=== PATIENT | female | born 1975 | race Caucasian/White ===

== ENCOUNTER 2016-10-02 13:27 | Emergency (ER) | payer OTHER ==
[~2016-10-02 13:27] MED LIST: /DULO30CA; ACET30TAB PO; AMBI10TA PO; AMBI5TAB; AMBIEN PO; ASCO25TA PO; ATIV1TAB2; BACT800T5 PO; BUSP10TA PO; BUSP1TAB PO; CELE100C; CYCL10TA PO; CYCL10TA3 PO; CYMB60CA3 PO; DOXY100T; DULO1CAP3 PO; ESTR625TA PO; Flagyl; GABA-279 PO; GABA300C2 PO; GABA600T PO; HALO1TA PO; HYDR10EL PO; IMIT50TA PO; LAMI25TA PO; LEXA1TAB PO; LITHOBID PO; METH-107 PO; NEUR600T PO; No home medications; OMEP20CA3 PO; OXYC1TAB23 PO; PANTOPRAZOLE PO; PREG100CA; PREG50CA PO; PRIL20CA9 PO; PROZ20CA; PROZ40CA PO; PROZAC PO; REME15TA PO; ROBA750T4 PO; SUMA50TA2 PO; TIZA4CAP3 PO; TOPA50TA7 PO; TRAZ100T2 PO; TRAZ100T4 PO; TRAZ150T14 PO; TRAZ50TA2 PO; TRAZ50TA4 PO; ULTR50TA PO; VIST50CA PO; XANAX PO; ambien
--- NOTE | 2016-10-02 14:22 | REP ---
Clinical: Trauma. Technique: AP, lateral, bilateral oblique views left hand. Findings: The osseous structures and joint spaces are intact and there is no evidence for acute fracture or dislocation. Age-related degenerative changes appreciated. Surrounding soft tissues are unremarkable. No subcutaneous emphysema or radiodense foreign body. Impression: No acute fracture or dislocation. Signed by Rohan Michael MD 10/02/2016 02:13 P
[2016-10-02] MEDS ORDERED: ACETAMINOPHEN 325 MG TAB As Ordered ONE (14:51)
--- NOTE | 2016-10-02 15:01 | EDDOCDS ---
Nurse's Notes [facility] Name: Millie Burks Age: 41 yrs Sex: Female : 1975 Arrival Date: 10/02/2016 Time: 13:27 Bed PR Private MD: Brandy Maria Diagnosis: Contusion of left hand Presentation: 10/02 13:28 Presenting complaint: Patient states: was upset and hit a curtain jeyson 30 mins ago and hs1 hurt left hand. Patient states left thumb hurts, bruising noted. Adult Sepsis Screening: The patient does not have new or worsening altered mentation. Patient's respiratory rate is less than 22. Systolic blood pressure is greater than 100. Patient has a qSOFA score of 0- Negative Sepsis Screen. Suicide/Homicide risk assessment- the patient denies having any suicidal and/or homicidal ideations and does not present with any other emotional, behavioral or mental health complaints. Status: Patient is not a statistical machine servicer or dependent. Transition of care: patient was not received from another setting of care. 13:28 Method Of Arrival: Walkin/Carried/Asstd hs1 13:28 Acuity: WARNER Level 4 dwg Triage Assessment: 13:33 General: Appears in no apparent distress, Behavior is anxious, cooperative. Pain: hs1 Location: palmar aspect of proximal phalanx of left thumb Pain currently is 8 out of 10 on a pain scale. HIV screening NA for this visit Offered previously. Derm: Swollen area noted on palmar aspect of proximal phalanx of left thumb. Musculoskeletal: Range of motion intact in MCP of left thumb. Historical: - Allergies: Aspirin (Hives); Toradol (Hives); Zofran; NSAIDS (Upset stomach, Hives); - Home Meds: 1. gabapentin 300 mg Oral cap 1 cap 3 times per day (Last dose: 10/02/2016 12:00) 2. Remeron 30 mg oral tab 1 tab once daily (Last dose: 10/01/2016) 3. Topamax 50 mg Oral tab daily 4. omeprazole 20 mg Oral cpDR 1 cap once daily 5. Imitrex 25 mg Oral tab 1 tab as needed - PMHx: Anxiety; Bipolar disorder; Depression; Fibromyalgia; GERD; Migraines; PTSD; - PSHx: Ankle Arthroplasty, Right; ; cyst removal from breast; Hysterectomy; - Social history: Smoking status: Patient uses tobacco products, heavy tobacco smoker. No barriers to communication noted, The patient speaks fluent Slovak, Speaks appropriately for age. - Family history: Not pertinent. - : The pt / caregiver states he / she is not on anticoagulants. Home medication list is obtained from the patient. - Exposure Risk Screening:: None identified. Screenin:58 Screening information is obtained from the patient. Fall risk: No risks identified. ms18 Assistance ADL's: requires no assistance with activities of daily living. Abuse/DV Screen: The patient / caregiver reports he/she is: not in a situation that causes fear, pain or injury. Nutritional screening: No deficits noted. Advance Directives: There is no living will. home support is adequate. Assessment: 14:58 General: Appears in no apparent distress, comfortable, Behavior is appropriate for age, ms18 cooperative, pleasant. Pain: Location: left hand Pain currently is 5 out of 10 on a pain scale. Neurological: No deficits noted. Respiratory: Airway is patent Respiratory effort is even, unlabored. Derm: Skin is pink, warm & dry. normal. Musculoskeletal: Circulation, motion, and sensation intact Range of motion intact in all extremities. No deformity noted. Vital Signs: 13:28 BP 123 / 72; Pulse 83; Resp 18; Temp 98.3(O); Pulse Ox 100% on R/A; Weight 58.97 kg ct3 (R); Height 5 ft. 3 in. (160.02 cm) (R); Pain 8/10; 14:38 BP 112 / 70 RA Sitting (auto/lg); Pulse 79; Resp 18; Temp 99.2(T); Pulse Ox 99% on R/A; rs6 Pain 8/10; 14:58 BP 120 / 72; Pulse 78; Resp 18; Temp 98.7; Pulse Ox 98% ; Pain 5/10; ms18 13:28 Body Mass Index 23.03 (58.97 kg, 160.02 cm) ct3 Vitals: 13:28 Log In Time: October 02, 2016 at 13:25. ct3 ED Course: 13:28 Patient visited by Fifi Victoria PCA. ct3 13:28 Brandy Maria is Private Physician. ct3 13:28 Patient moved to Waiting ct3 13:29 Patient moved to Pre RCE ct3 13:30 Triage Initiated hs1 13:51 Patient moved to Triage 3 dwg 13:52 Jeff Kaur FNP is [facility]. ke 13:52 Patient visited by Jeff Kaur FNP. ke 13:52 Patient visited by Jeff Kaur FNP. ke 13:58 Patient moved to TR1 hs1 14:26 Patient visited by Jeff Kaur FNP. ke 14:34 Brandy Maria is Referral Physician. ke 14:34 Patient moved to PR2 / rs6 14:39 Patient visited by Fay Hook PCA. rs6 14:58 Patient visited by Estephanie Burks RN. ms18 14:58 The patient / caregiver is instructed regarding the plan of care and ED course. ms18 Accompanied by Friend, Patient has correct armband on for positive identification. Property sent home with patient. :Personal belongings accompany Pt. 14:58 No IV's were initiated during this patient's visit. No procedures done that require ms18 assistance. Administered Medications: 14:55 Drug: Acetaminophen 650 mg [acetaminophen 325 mg tablet (2 tabs)] Route: PO; ms18 Order Results: There are currently no results for this order. Outcome: 14:34 Discharge ordered by Provider. ke 14:58 Discharge Assessment: Patient awake, alert and oriented x 3. No cognitive and/or ms18 functional deficits noted. Patient verbalized understanding of disposition instructions. patient administered narcotics - no. The following High Risk Discharge criteria are identified: None. Discharged to home ambulatory, with friend. Condition: good Condition: stable Condition: improved. Discharge instructions given to patient, Instructed on discharge instructions, follow up and referral plans. Demonstrated understanding of instructions, Pt was receptive of discharge instructions/ teaching. No special radiology studies were completed. 15:00 Patient left the ED. ms18 Signatures: Ej Granado RN RN [facility] Jeff Kaur FNP FNP ke Sherrill, Hannah, RN RN hs1 Fifi Victoria, PAINTER CHASSIS PAINTER CHASSIS ct3 Estephanie Burks RN RN ms18 Fay Hook, PAINTER CHASSIS PAINTER CHASSIS rs6 Corrections: (The following items were deleted from the chart) 13:51 13:28 Acuity: WARNER Level 5 hs1 dw MTDD
--- NOTE | 2016-10-02 15:01 | EDDOCDS ---
Physician Documentation [facility] Name: Millie Burks Age: 41 yrs Sex: Female : 1975 Arrival Date: 10/02/2016 Time: 13:27 Bed PR Private MD: Brandy Maria Disposition: 10/02/16 14:34 Discharged to Home/Self Care. Impression: Contusion of left hand. - Condition is Stable. - Discharge Instructions: Elastic Bandage and RICE, Hand Contusion. - Medication Reconciliation, Local Pharmacy Hours form. - Follow up: Brandy Maria; When: As needed; Reason: Continuance of care. - Problem is new. - Symptoms are unchanged. Historical: - Allergies: Aspirin (Hives); Toradol (Hives); Zofran; NSAIDS (Upset stomach, Hives); - Home Meds: 1. gabapentin 300 mg Oral cap 1 cap 3 times per day (Last dose: 10/02/2016 12:00) 2. Remeron 30 mg oral tab 1 tab once daily (Last dose: 10/01/2016) 3. Topamax 50 mg Oral tab daily 4. omeprazole 20 mg Oral cpDR 1 cap once daily 5. Imitrex 25 mg Oral tab 1 tab as needed - PMHx: Anxiety; Bipolar disorder; Depression; Fibromyalgia; GERD; Migraines; PTSD; - PSHx: Ankle Arthroplasty, Right; ; cyst removal from breast; Hysterectomy; - Social history: Smoking status: Patient uses tobacco products, heavy tobacco smoker. No barriers to communication noted, The patient speaks fluent Ukrainian, Speaks appropriately for age. - Family history: Not pertinent. - : The pt / caregiver states he / she is not on anticoagulants. Home medication list is obtained from the patient. - Exposure Risk Screening:: None identified. Vital Signs: 10/02 13:28 BP 123 / 72; Pulse 83; Resp 18; Temp 98.3(O); Pulse Ox 100% on R/A; Weight 58.97 kg / ct3 130.01 lbs (R); Height 5 ft. 3 in. (160.02 cm) (R); Pain 8/10; 14:38 BP 112 / 70 RA Sitting (auto/lg); Pulse 79; Resp 18; Temp 99.2(T); Pulse Ox 99% on R/A; rs6 Pain 8/10; 14:58 BP 120 / 72; Pulse 78; Resp 18; Temp 98.7; Pulse Ox 98% ; Pain 5/10; ms18 13:28 Body Mass Index 23.03 (58.97 kg, 160.02 cm) ct3 MDM: 13:58 Hand, Complete Ordered. EDMS 14:33 Jordy Wrap ordered. ke 14:33 Acetaminophen Tablet 650 mg PO once ordered. ke 14:47 Financial registration complete. pm4 Administered Medications: 14:55 Drug: Acetaminophen 650 mg [acetaminophen 325 mg tablet (2 tabs)] Route: PO; ms18 Signatures: Dispatcher [employer] EDMS Jeff Kaur, RECYCLING WORKER RECYCLING WORKER Yolande Marquez RN RN hs1 Estephanie Burks RN RN ms18 Roger Dick, Reg Reg pm4 MTDD
--- NOTE | 2016-10-04 16:02 | EDDOCDS ---
Physician Documentation [facility] Name: Millie Burks Age: 41 yrs Sex: Female : 1975 Arrival Date: 10/02/2016 Time: 13:27 Bed PR Private MD: Brandy Maria Disposition: 10/02/16 14:34 Discharged to Home/Self Care. Impression: Contusion of left hand. - Condition is Stable. - Discharge Instructions: Elastic Bandage and RICE, Hand Contusion. - Medication Reconciliation, Local Pharmacy Hours form. - Follow up: Brandy Maria; When: As needed; Reason: Continuance of care. - Problem is new. - Symptoms are unchanged. Historical: - Allergies: Aspirin (Hives); Toradol (Hives); Zofran; NSAIDS (Upset stomach, Hives); - Home Meds: 1. gabapentin 300 mg Oral cap 1 cap 3 times per day (Last dose: 10/02/2016 12:00) 2. Remeron 30 mg oral tab 1 tab once daily (Last dose: 10/01/2016) 3. Topamax 50 mg Oral tab daily 4. omeprazole 20 mg Oral cpDR 1 cap once daily 5. Imitrex 25 mg Oral tab 1 tab as needed - PMHx: Anxiety; Bipolar disorder; Depression; Fibromyalgia; GERD; Migraines; PTSD; - PSHx: Ankle Arthroplasty, Right; ; cyst removal from breast; Hysterectomy; - Social history: Smoking status: Patient uses tobacco products, heavy tobacco smoker. No barriers to communication noted, The patient speaks fluent Nepali, Speaks appropriately for age. - Family history: Not pertinent. - : The pt / caregiver states he / she is not on anticoagulants. Home medication list is obtained from the patient. - Exposure Risk Screening:: None identified. Vital Signs: 10/02 13:28 BP 123 / 72; Pulse 83; Resp 18; Temp 98.3(O); Pulse Ox 100% on R/A; Weight 58.97 kg / ct3 130.01 lbs (R); Height 5 ft. 3 in. (160.02 cm) (R); Pain 8/10; 14:38 BP 112 / 70 RA Sitting (auto/lg); Pulse 79; Resp 18; Temp 99.2(T); Pulse Ox 99% on R/A; rs6 Pain 8/10; 14:58 BP 120 / 72; Pulse 78; Resp 18; Temp 98.7; Pulse Ox 98% ; Pain 5/10; ms18 13:28 Body Mass Index 23.03 (58.97 kg, 160.02 cm) ct3 MDM: 13:58 Hand, Complete Ordered. EDMS 14:33 Jordy Wrap ordered. ke 14:33 Acetaminophen Tablet 650 mg PO once ordered. ke 14:47 Financial registration complete. pm4 15:05 [facility] Payment Agreement was scanned into [employer] and attached to record. pm4 15: [facility] Payment Agreement was scanned into [employer] and attached to record. pm4 10/03 11:59 T-Sheet-- Draft Copy was scanned into [email or web address] and attached to record. gb Administered Medications: 10/02 14:55 Drug: Acetaminophen 650 mg [acetaminophen 325 mg tablet (2 tabs)] Route: PO; ms18 Signatures: Dispatcher [employer] EDMS Lia Aguilar, Reg Reg gb Jeff Kaur, POTATO CHIP FRIER POTATO CHIP FRIER Yolande Marquez, RN RN hs1 Estephanie Burks RN RN ms18 Roger Dick, Reg Reg pm4 The chart was reviewed and I authenticate all verbal orders and agree with the evaluation and treatment provided.Attachments: 15: [facility] Payment Agreement pm4 10/03 11:59 T-Sheet-- Draft Copy gb Chart Complete MTDD
--- NOTE | 2016-10-04 16:02 | EDDOCDS ---
Physician Documentation [facility] Name: Millie Burks Age: 41 yrs Sex: Female : 1975 Arrival Date: 10/02/2016 Time: 13:27 Bed PR Private MD: Brandy Maria Disposition: 10/02/16 14:34 Discharged to Home/Self Care. Impression: Contusion of left hand. - Condition is Stable. - Discharge Instructions: Elastic Bandage and RICE, Hand Contusion. - Medication Reconciliation, Local Pharmacy Hours form. - Follow up: Brandy Maria; When: As needed; Reason: Continuance of care. - Problem is new. - Symptoms are unchanged. Historical: - Allergies: Aspirin (Hives); Toradol (Hives); Zofran; NSAIDS (Upset stomach, Hives); - Home Meds: 1. gabapentin 300 mg Oral cap 1 cap 3 times per day (Last dose: 10/02/2016 12:00) 2. Remeron 30 mg oral tab 1 tab once daily (Last dose: 10/01/2016) 3. Topamax 50 mg Oral tab daily 4. omeprazole 20 mg Oral cpDR 1 cap once daily 5. Imitrex 25 mg Oral tab 1 tab as needed - PMHx: Anxiety; Bipolar disorder; Depression; Fibromyalgia; GERD; Migraines; PTSD; - PSHx: Ankle Arthroplasty, Right; ; cyst removal from breast; Hysterectomy; - Social history: Smoking status: Patient uses tobacco products, heavy tobacco smoker. No barriers to communication noted, The patient speaks fluent Greenlandic, Speaks appropriately for age. - Family history: Not pertinent. - : The pt / caregiver states he / she is not on anticoagulants. Home medication list is obtained from the patient. - Exposure Risk Screening:: None identified. Vital Signs: 10/02 13:28 BP 123 / 72; Pulse 83; Resp 18; Temp 98.3(O); Pulse Ox 100% on R/A; Weight 58.97 kg / ct3 130.01 lbs (R); Height 5 ft. 3 in. (160.02 cm) (R); Pain 8/10; 14:38 BP 112 / 70 RA Sitting (auto/lg); Pulse 79; Resp 18; Temp 99.2(T); Pulse Ox 99% on R/A; rs6 Pain 8/10; 14:58 BP 120 / 72; Pulse 78; Resp 18; Temp 98.7; Pulse Ox 98% ; Pain 5/10; ms18 13:28 Body Mass Index 23.03 (58.97 kg, 160.02 cm) ct3 MDM: 13:58 Hand, Complete Ordered. EDMS 14:33 Jordy Wrap ordered. ke 14:33 Acetaminophen Tablet 650 mg PO once ordered. ke 14:47 Financial registration complete. pm4 15:05 [facility] Payment Agreement was scanned into [employer] and attached to record. pm4 15: [facility] Payment Agreement was scanned into [employer] and attached to record. pm4 10/03 11:59 T-Sheet-- Draft Copy was scanned into [employer] and attached to record. gb Administered Medications: 10/02 14:55 Drug: Acetaminophen 650 mg [acetaminophen 325 mg tablet (2 tabs)] Route: PO; ms18 Signatures: Dispatcher [employer] EDMS Lia Aguilar, Reg Reg gb Jeff Kaur, MOTORIZED SQUAD CAPTAIN MOTORIZED SQUAD CAPTAIN Yolande Marquez, RN RN hs1 Estephanie Burks RN RN ms18 Roger Dick, Reg Reg pm4 The chart was reviewed and I authenticate all verbal orders and agree with the evaluation and treatment provided.Attachments: 15: [facility] Payment Agreement pm4 10/03 11:59 T-Sheet-- Draft Copy gb Chart Complete MTDD
--- NOTE | 2016-10-04 16:02 | EDDOCDS ---
Nurse's Notes [facility] Name: Millie Burks Age: 41 yrs Sex: Female : 1975 Arrival Date: 10/02/2016 Time: 13:27 Bed PR Private MD: Brandy Maria Diagnosis: Contusion of left hand Presentation: 10/02 13:28 Presenting complaint: Patient states: was upset and hit a curtain jeyson 30 mins ago and hs1 hurt left hand. Patient states left thumb hurts, bruising noted. Adult Sepsis Screening: The patient does not have new or worsening altered mentation. Patient's respiratory rate is less than 22. Systolic blood pressure is greater than 100. Patient has a qSOFA score of 0- Negative Sepsis Screen. Suicide/Homicide risk assessment- the patient denies having any suicidal and/or homicidal ideations and does not present with any other emotional, behavioral or mental health complaints. Status: Patient is not a resident services coordinator or dependent. Transition of care: patient was not received from another setting of care. 13:28 Method Of Arrival: Walkin/Carried/Asstd hs1 13:28 Acuity: WARNER Level 4 dwg Triage Assessment: 13:33 General: Appears in no apparent distress, Behavior is anxious, cooperative. Pain: hs1 Location: palmar aspect of proximal phalanx of left thumb Pain currently is 8 out of 10 on a pain scale. HIV screening NA for this visit Offered previously. Derm: Swollen area noted on palmar aspect of proximal phalanx of left thumb. Musculoskeletal: Range of motion intact in MCP of left thumb. Historical: - Allergies: Aspirin (Hives); Toradol (Hives); Zofran; NSAIDS (Upset stomach, Hives); - Home Meds: 1. gabapentin 300 mg Oral cap 1 cap 3 times per day (Last dose: 10/02/2016 12:00) 2. Remeron 30 mg oral tab 1 tab once daily (Last dose: 10/01/2016) 3. Topamax 50 mg Oral tab daily 4. omeprazole 20 mg Oral cpDR 1 cap once daily 5. Imitrex 25 mg Oral tab 1 tab as needed - PMHx: Anxiety; Bipolar disorder; Depression; Fibromyalgia; GERD; Migraines; PTSD; - PSHx: Ankle Arthroplasty, Right; ; cyst removal from breast; Hysterectomy; - Social history: Smoking status: Patient uses tobacco products, heavy tobacco smoker. No barriers to communication noted, The patient speaks fluent Portuguese, Speaks appropriately for age. - Family history: Not pertinent. - : The pt / caregiver states he / she is not on anticoagulants. Home medication list is obtained from the patient. - Exposure Risk Screening:: None identified. Screenin:58 Screening information is obtained from the patient. Fall risk: No risks identified. ms18 Assistance ADL's: requires no assistance with activities of daily living. Abuse/DV Screen: The patient / caregiver reports he/she is: not in a situation that causes fear, pain or injury. Nutritional screening: No deficits noted. Advance Directives: There is no living will. home support is adequate. Assessment: 14:58 General: Appears in no apparent distress, comfortable, Behavior is appropriate for age, ms18 cooperative, pleasant. Pain: Location: left hand Pain currently is 5 out of 10 on a pain scale. Neurological: No deficits noted. Respiratory: Airway is patent Respiratory effort is even, unlabored. Derm: Skin is pink, warm & dry. normal. Musculoskeletal: Circulation, motion, and sensation intact Range of motion intact in all extremities. No deformity noted. Vital Signs: 13:28 BP 123 / 72; Pulse 83; Resp 18; Temp 98.3(O); Pulse Ox 100% on R/A; Weight 58.97 kg ct3 (R); Height 5 ft. 3 in. (160.02 cm) (R); Pain 8/10; 14:38 BP 112 / 70 RA Sitting (auto/lg); Pulse 79; Resp 18; Temp 99.2(T); Pulse Ox 99% on R/A; rs6 Pain 8/10; 14:58 BP 120 / 72; Pulse 78; Resp 18; Temp 98.7; Pulse Ox 98% ; Pain 5/10; ms18 13:28 Body Mass Index 23.03 (58.97 kg, 160.02 cm) ct3 Vitals: 13:28 Log In Time: October 02, 2016 at 13:25. ct3 ED Course: 13:28 Patient visited by Fifi Victoria PCA. ct3 13:28 Brandy Maria is Private Physician. ct3 13:28 Patient moved to Waiting ct3 13:29 Patient moved to Pre RCE ct3 13:30 Triage Initiated hs1 13:51 Patient moved to Triage 3 dwg 13:52 [facility]. ke 13:52 Patient visited by Jeff Kaur FNP. ke 13:52 Patient visited by Jeff Kaur FNP. ke 13:58 Patient moved to TR1 hs1 14:26 Patient visited by Jeff Kaur FNP. ke 14:34 Brandy Maria is Referral Physician. ke 14:34 Patient moved to PR2 / rs6 14:39 Patient visited by Fay Hook, EZEQUIEL. rs6 14:58 Patient visited by Estephanie Burks RN. ms18 14:58 The patient / caregiver is instructed regarding the plan of care and ED course. ms18 Accompanied by Friend, Patient has correct armband on for positive identification. Property sent home with patient. :Personal belongings accompany Pt. 14:58 No IV's were initiated during this patient's visit. No procedures done that require ms18 assistance. 15:05 [facility] Payment Agreement was scanned into [employer] and attached to record. pm4 15:06 [facility] Payment Agreement was scanned into [employer] and attached to record. pm4 15:12 Hand, Complete Returned. EDMS 10/03 11:59 T-Sheet-- Draft Copy was scanned into [employer] and attached to record. gb Administered Medications: 10/02 14:55 Drug: Acetaminophen 650 mg [acetaminophen 325 mg tablet (2 tabs)] Route: PO; ms18 Order Results: Radiology Order: Hand, Complete Test: Hand, Complete REASON FOR EXAMINATION: Trauma; Clinical: Trauma.; ; Technique: AP, lateral, bilateral oblique views left hand.; ; Findings: The osseous structures and joint spaces are intact and there is no; evidence for acute fracture or dislocation. Age-related degenerative changes; appreciated. Surrounding soft tissues are unremarkable. No subcutaneous; emphysema or radiodense foreign body.; ; Impression:; No acute fracture or dislocation.; ; ; Signed by; Rohan Michael MD 10/02/2016 02:13 P; Outcome: 14:34 Discharge ordered by Provider. ke 14:58 Discharge Assessment: Patient awake, alert and oriented x 3. No cognitive and/or ms18 functional deficits noted. Patient verbalized understanding of disposition instructions. patient administered narcotics - no. The following High Risk Discharge criteria are identified: None. Discharged to home ambulatory, with friend. Condition: good Condition: stable Condition: improved. Discharge instructions given to patient, Instructed on discharge instructions, follow up and referral plans. Demonstrated understanding of instructions, Pt was receptive of discharge instructions/ teaching. No special radiology studies were completed. 15:00 Patient left the ED. ms18 Signatures: Dispatcher [employer] EDMS Ej Granado, RN RN dwg Lia Aguilar, Reg Reg gb Jeff Kaur, SENIOR EXECUTIVE ASSISTANT SENIOR EXECUTIVE ASSISTANT Yolande Marquez RN RN hs1 Fifi Victoria, HEAD BANDER AND LINER OPERATOR HEAD BANDER AND LINER OPERATOR ct3 Estephanie Burks RN RN ms18 Fay Hook, HEAD BANDER AND LINER OPERATOR HEAD BANDER AND LINER OPERATOR rs6 Roger Dick, Reg Reg pm4 Corrections: (The following items were deleted from the chart) 13:51 13:28 Acuity: WARNER Level 5 hs1 cammy Chart Complete MTDD
== END 2016-10-02 15:00 | disposition home or self-care (01) ==
LOC: M ED 13:27
DX: S90.32XA Contusion of left foot, initial encounter (principal); W22.8XXA Striking against or struck by other objects, initial encounter; Y92.89 Other specified places as the place of occurrence of the external cause; Y93.89 Activity, other specified; Y99.8 Other external cause status; F31.9 Bipolar disorder, unspecified; M79.7 Fibromyalgia; K21.9 Gastro-esophageal reflux disease without esophagitis; G43.909 Migraine, unspecified, not intractable, without status migrainosus; F43.10 Post-traumatic stress disorder, unspecified; F17.210 Nicotine dependence, cigarettes, uncomplicated; Z79.899 Other long term (current) drug therapy; Z88.2 Allergy status to sulfonamides; Z88.8 Allergy status to other drugs, medicaments and biological substances; Z88.6 Allergy status to analgesic agent

== ENCOUNTER → 2017-04-10 | Outpatient (REF) | payer OTHER ==
[~2017-04-10] MED LIST changes: +LATU40TA PO; -METH-107 PO; +METH1TAB40 PO; +MIRT30TA3 PO; +NORCOTAB PO; -TOPA50TA7 PO; +TOPA50TA8 PO; +TRAZ-136 PO; -TRAZ100T4 PO; -TRAZ150T14 PO; +TRAZ1TAB14 PO; +TRAZ50TA11 PO; -TRAZ50TA4 PO
[2017-04-17 08:09] LABS: BENZODIAZEPINES, URINE SCREEN Negative ng/mL (Cutoff=200); METHADONE, URINE SCREEN Negative ng/mL (Cutoff=300); pH, URINE 7.7 (4.5-8.9)
== END ==
LOC: M LAB REF 16:33
PROVIDERS: ATTEND Nurse Practitioner Family
DX: F19.10 Other psychoactive substance abuse, uncomplicated (principal)

== ENCOUNTER 2017-06-11 11:32 | Emergency (ER) | payer OTHER ==
[~2017-06-11] VITALS: Ht 160 cm; Wt 53.6 kg
[~2017-06-11 11:32] MED LIST changes: -LATU40TA PO; -MIRT30TA3 PO; -NORCOTAB PO
[2017-06-11] MEDS ORDERED: LATU40TA PO (11:44)
[2017-06-11] MEDS ORDERED: MIRT30TA3 PO (11:44)
[2017-06-11] MEDS ORDERED: PERCOCET 5MG/325MG TAB PO ONE (12:15)
--- NOTE | 2017-06-11 13:20 | REP ---
LEFT SHOULDER, THREE VIEWS: There is no evidence of an acute fracture, dislocation or intrinsic bone disease. IMPRESSION: No fracture or dislocation. Signed by Ej Kwok MD 06/11/2017 04:50 P
--- NOTE | 2017-06-11 13:23 | REP ---
Left hand series: Four views. History: Injury. Findings: Four views of the left hand are compared with prior study from October 02, 2016. There is no evidence of fracture or subluxation. No opaque foreign body is seen. Impression: Negative left hand radiographs. Signed by Marcus Coats MD 06/11/2017 03:52 P
[2017-06-11] MEDS ORDERED: NORCOTAB PO ×2 (13:24→14:32)
[2017-06-11 13:43] VITALS: BP 108/72
== END 2017-06-11 13:45 | disposition home or self-care (01) ==
LOC: M ED 11:32
DX: S46.912A Strain of unspecified muscle, fascia and tendon at shoulder and upper arm level, left arm, initial encounter (principal); X50.9XXA Other and unspecified overexertion or strenuous movements or postures, initial encounter; Y92.019 Unspecified place in single-family (private) house as the place of occurrence of the external cause; Y93.89 Activity, other specified; Y99.8 Other external cause status; M79.7 Fibromyalgia; F31.9 Bipolar disorder, unspecified; F17.210 Nicotine dependence, cigarettes, uncomplicated; Z79.899 Other long term (current) drug therapy; Z88.8 Allergy status to other drugs, medicaments and biological substances; L23.1 Allergic contact dermatitis due to adhesives

== ENCOUNTER 2017-07-02 14:24 | Emergency (ER) | payer MEDICAID, OTHER, SELFPAY ==
[~2017-07-02] VITALS: Ht 160 cm; Wt 52.7 kg
[~2017-07-02 14:24] MED LIST changes: +LATU40TA PO; +MIRT30TA3 PO; +NORCOTAB PO
[2017-07-02 14:25] VITALS: BP 110/76
[2017-07-02 15:28] LABS: MEAN CORPUSCULAR HEMOGLOBIN 33.2 pg (27.0-33.0); MEAN CORPUSCULAR HGB CONC 33.8 g/dl (32.0-36.5); RED CELL DISTRIBUTION WIDTH 12.4 % (11.5-14.5)
[2017-07-02 16:03] LABS: METHADONE URINE NEGATIVE (NEGATIVE)
[2017-07-02 16:04] LABS: ALBUMIN 3.8 GM/DL (3.2-5.2); ALBUMIN/GLOBULIN RATIO 1.19 (1.00-1.93); ALKALINE PHOSPHATASE 102 U/L (45-117); ALT/SGPT 15 U/L (12-78); ANION GAP 5 MEQ/L (8-16); AST/SGOT 7 U/L (15-37); BILIRUBIN,DIRECT < 0.1 MG/DL (0.0-0.2); BILIRUBIN,TOTAL 0.3 MG/DL (0.2-1.0); BLOOD UREA NITROGEN 13 MG/DL (7-18); CALCIUM LEVEL 8.9 MG/DL (8.5-10.1); CARBON DIOXIDE LEVEL 29 MEQ/L (21-32); CHLORIDE LEVEL 106 MEQ/L (98-107); CREATININE FOR GFR 0.59 MG/DL (0.55-1.02); GLOMERULAR FILTRATION RATE > 60.0 (>58); GLUCOSE, FASTING 85 MG/DL (70-105); POTASSIUM SERUM 3.5 MEQ/L (3.5-5.1); SODIUM LEVEL 140 MEQ/L (136-145)
== END 2017-07-02 16:47 | disposition left against medical advice (07) ==
LOC: M ED 14:24
DX: F19.10 Other psychoactive substance abuse, uncomplicated (principal); F31.9 Bipolar disorder, unspecified; F17.200 Nicotine dependence, unspecified, uncomplicated; F10.10 Alcohol abuse, uncomplicated; Z79.899 Other long term (current) drug therapy; Z88.6 Allergy status to analgesic agent; Z88.8 Allergy status to other drugs, medicaments and biological substances; Z91.89 Other specified personal risk factors, not elsewhere classified; Z53.21 Procedure and treatment not carried out due to patient leaving prior to being seen by health care provider
CPT/HCPCS: 80048; 80076; 80307; 84443; 85027; 99282; G0480

== ENCOUNTER 2017-09-10 05:24 | Emergency (ER) | payer MEDICAID, OTHER ==
[~2017-09-10] VITALS: Ht 160 cm; Wt 56.4 kg
[2017-09-10] MEDS ORDERED: MORPHINE 4 MG/ML 1ML SYRINGE IV ONE (06:00)
[2017-09-10] MEDS ORDERED: NS 1,000 ML IV ONE (06:00)
[2017-09-10 06:16] LABS: BASO # 0.1 10^3/uL (0.0-0.2); BASO % 0.9 % (0.0-1.0); EOS # 0.2 10^3/uL (0.0-0.50); EOS % 2.7 % (0.0-3.0); IMMATURE GRANULOCYTE % 0.3 % (0-0); LYMPH # 2.9 10^3/uL (1.5-4.5); LYMPH % 40.8 % (24.0-44.0); MEAN CORPUSCULAR HEMOGLOBIN 33.8 pg (27.0-33.0); MEAN CORPUSCULAR HGB CONC 35.8 g/dl (32.0-36.5); MEAN CORPUSCULAR VOLUME 94.4 fl (80.0-96.0); MONO # 0.5 10^3/uL (0.0-0.8); MONO % 7.4 % (0.0-5.0); NEUTROPHILS # 3.3 10^3/uL (1.8-7.7); NEUTROPHILS % 47.9 % (36.0-66.0); PLATELET COUNT, AUTOMATED 272 10^3/uL (150-450); RED CELL DISTRIBUTION WIDTH 11.9 % (11.5-14.5)
--- NOTE | 2017-09-10 06:30 | REPUSA ---
CLINICAL HISTORY: Trauma. TECHNIQUE: Multiple axial CT images were obtained through the lumbar spine without IV contrast marie brooks COMMENTS: There is no fracture visualized. The paraspinal soft tissues are unremarkable. There are no lytic or blastic lesions. IMPRESSION: Unremarkable exam. Thank you for your kind referral of this patient.
[2017-09-10 06:32] LABS: ANION GAP 10 MEQ/L (8-16); BLOOD UREA NITROGEN 18 MG/DL (7-18); CALCIUM LEVEL 9.1 MG/DL (8.5-10.1); CARBON DIOXIDE LEVEL 24 MEQ/L (21-32); CHLORIDE LEVEL 107 MEQ/L (98-107); CREATININE FOR GFR 0.89 MG/DL (0.55-1.02); GLOMERULAR FILTRATION RATE > 60.0 (>58); GLUCOSE, FASTING 94 MG/DL (70-105); POTASSIUM SERUM 3.5 MEQ/L (3.5-5.1); SODIUM LEVEL 141 MEQ/L (136-145)
[2017-09-10 06:52] VITALS: BP 100/56
== END 2017-09-10 07:13 | disposition home or self-care (01) ==
LOC: M ED 05:24
DX: M54.5 Low back pain (principal); F10.10 Alcohol abuse, uncomplicated; F31.9 Bipolar disorder, unspecified; M79.7 Fibromyalgia; F17.200 Nicotine dependence, unspecified, uncomplicated; Z79.899 Other long term (current) drug therapy; Z88.6 Allergy status to analgesic agent; Z88.8 Allergy status to other drugs, medicaments and biological substances; Z91.89 Other specified personal risk factors, not elsewhere classified

== ENCOUNTER 2017-11-14 21:55 | Emergency (ER) | payer OTHER ==
[2017-11-14] MEDS: ONDANSETRON 4MG/2ML VIAL (J2405) IV (22:30)
[2017-11-14] MEDS: NS 1,000 ML IV (22:30)
[2017-11-14] MEDS: MORPHINE 4 MG/ML 1ML VIAL (J2270) IV (22:30)
[2017-11-14 22:59] LABS: BASO # 0.1 10^3/uL (0.0-0.2); BASO % 0.6 % (0.0-1.0); EOS # 0.2 10^3/uL (0.0-0.50); EOS % 1.8 % (0.0-3.0); HEMATOCRIT 40.9 % (36.0-47.0); HEMOGLOBIN 14.2 g/dl (12.0-16.0); IMMATURE GRANULOCYTE % 0.2 % (0-3.0); LYMPH # 3.8 10^3/uL (1.5-4.5); MEAN CORPUSCULAR HEMOGLOBIN 33.6 pg (27.0-33.0); MEAN CORPUSCULAR HGB CONC 34.7 g/dl (32.0-36.5); MEAN CORPUSCULAR VOLUME 96.9 fl (80.0-96.0); MONO # 0.5 10^3/uL (0.0-0.8); MONO % 5.2 % (0.0-5.0); NEUTROPHILS # 4.4 10^3/uL (1.8-7.7); NEUTROPHILS % 49.2 % (36.0-66.0); PLATELET COUNT, AUTOMATED 241 10^3/uL (150-450); RED BLOOD COUNT 4.22 10^6/uL (4.00-5.40); RED CELL DISTRIBUTION WIDTH 11.9 % (11.5-14.5); WHITE BLOOD COUNT 8.9 10^3/uL (4.0-10.0)
[2017-11-14 23:31] LABS: BLOOD UREA NITROGEN 16 MG/DL (7-18); CHLORIDE LEVEL 106 MEQ/L (98-107); GLOMERULAR FILTRATION RATE > 60.0 (>58); GLUCOSE, FASTING 79 MG/DL (70-100); SODIUM LEVEL 141 MEQ/L (136-145)
[2017-11-14 23:32] LABS: ALBUMIN 4.2 GM/DL (3.2-5.2); ALBUMIN/GLOBULIN RATIO 1.14 (1.00-1.93); ALKALINE PHOSPHATASE 92 U/L (45-117); ALT/SGPT 13 U/L (12-78); ANION GAP 7 MEQ/L (8-16); AST/SGOT 12 U/L (7-37); BILIRUBIN,TOTAL 0.3 MG/DL (0.2-1.0); CALCIUM LEVEL 8.8 MG/DL (8.5-10.1); CARBON DIOXIDE LEVEL 28 MEQ/L (21-32); LIPASE 198 U/L (73-393); TOTAL PROTEIN 7.9 GM/DL (6.4-8.2)
[2017-11-14] MEDS: POTASSIUM CHLORIDE 10 MEQ SR TABLET PO (23:48)
[2017-11-15] MEDS: MORPHINE 4 MG/ML 1ML VIAL (J2270) IV
[2017-11-15] MEDS: GI COCKTAIL 50ML BTL(HYOSCYAMINE/MAALOX/LIDOCAINE VISCOUS)(1:3:1) PO (00:05)
[2017-11-15 00:24] LABS: APPEARANCE, URINE HAZY (CLEAR); BACTERIA, URINE AUTO NEGATIVE (NEGATIVE); BILIRUBIN, URINE AUTO NEGATIVE (NEGATIVE); BLOOD, URINE BLOOD NEGATIVE (NEGATIVE); COLOR, URINE YELLOW (YELLOW); GLUCOSE, URINE (UA) AUTO NEGATIVE (NEGATIVE); KETONE, URINE AUTO TRACE mg/dL (NEGATIVE); LEUKOCYTE ESTERASE, URINE AUTO 2+ (NEGATIVE); MUCUS, URINE SMALL (NEGATIVE); NITRITE, URINE AUTO NEGATIVE (NEGATIVE); PROTEIN, URINE AUTO NEGATIVE (NEGATIVE); RBC, URINE AUTO 2 /HPF (0-3); SPECIFIC GRAVITY URINE AUTO 1.021 (1.002-1.035); SQUAMOUS EPITHELIAL CELL UR AU 1 /HPF (0-6); WBC, URINE AUTO 6 /HPF (0-3)
[2017-11-15] MEDS: ACETAMINOPHEN 325 MG TAB PO (01:13)
[2017-11-15] MEDS: SUCRALFATE 1 GM TAB PO (01:13)
== END 2017-11-15 01:35 | disposition home or self-care (01) ==
LOC: M ED 11-15 01:35
DX: R10.11 Right upper quadrant pain (principal); M54.5 Low back pain; K21.9 Gastro-esophageal reflux disease without esophagitis; F17.200 Nicotine dependence, unspecified, uncomplicated; Z79.899 Other long term (current) drug therapy; Z88.6 Allergy status to analgesic agent; Z91.89 Other specified personal risk factors, not elsewhere classified; Z88.8 Allergy status to other drugs, medicaments and biological substances
CPT/HCPCS: J2270

== ENCOUNTER → 2018-03-25 | Outpatient (REF) | payer OTHER ==
[2018-03-25 18:00] LABS: HEMATOCRIT 40.4 % (36.0-47.0); HEMOGLOBIN 13.9 g/dl (12.0-15.5); MEAN CORPUSCULAR HEMOGLOBIN 33.5 pg (27.0-33.0); MEAN CORPUSCULAR HGB CONC 34.4 g/dl (32.0-36.5); MEAN CORPUSCULAR VOLUME 97.3 fl (80.0-96.0); PLATELET COUNT, AUTOMATED 204 10^3/uL (150-450); RED BLOOD COUNT 4.15 10^6/uL (4.00-5.40); RED CELL DISTRIBUTION WIDTH 12.1 % (11.5-14.5)
[2018-03-25 18:22] LABS: ALBUMIN/GLOBULIN RATIO 1.21 (1.00-1.93); ALKALINE PHOSPHATASE 105 U/L (45-117); ALT/SGPT 22 U/L (12-78); ANION GAP 7 MEQ/L (8-16); AST/SGOT 12 U/L (7-37); BILIRUBIN,TOTAL 0.4 MG/DL (0.2-1.0); BLOOD UREA NITROGEN 15 MG/DL (7-18); CALCIUM LEVEL 8.5 MG/DL (8.5-10.1); CARBON DIOXIDE LEVEL 28 MEQ/L (21-32); CHLORIDE LEVEL 105 MEQ/L (98-107); CREATININE FOR GFR 0.63 MG/DL (0.55-1.30); GLOMERULAR FILTRATION RATE > 60.0 (>58); GLUCOSE, FASTING 88 MG/DL (70-100); LIPASE 143 U/L (73-393); POTASSIUM SERUM 4.1 MEQ/L (3.5-5.1); SODIUM LEVEL 140 MEQ/L (136-145); TOTAL PROTEIN 7.3 GM/DL (6.4-8.2)
== END ==
LOC: M LAB REF 17:14
DX: R10.13 Epigastric pain (principal)
CPT/HCPCS: 83690

== ENCOUNTER 2018-09-27 12:45 | Emergency (ER) | payer OTHER ==
[~2018-09-27] VITALS: Ht 160 cm; Wt 59.1 kg
[~2018-09-27 12:45] MED LIST changes: +CARA1TAB6 PO; +GABA-1171 PO; -GABA-279 PO; -GABA600T PO; +GABA600T4; +GABA600T4 PO; +ROBA500T PO; +SUMA100T2; +TIZA4CAP PO; -TIZA4CAP3 PO; -TRAZ-136 PO; +TRAZ-160 PO; +TRAZ-163 PO; -TRAZ50TA11 PO
[2018-09-27 13:30] LABS: BASO # 0.1 10^3/uL (0.0-0.2); BASO % 0.6 % (0.0-1.0); EOS # 0.1 10^3/uL (0.0-0.50); EOS % 0.7 % (0.0-3.0); HEMATOCRIT 42.8 % (36.0-47.0); HEMOGLOBIN 15.2 g/dl (12.0-15.5); LYMPH # 2.9 10^3/uL (1.5-4.5); LYMPH % 32.4 % (24.0-44.0); MEAN CORPUSCULAR HEMOGLOBIN 33.9 pg (27.0-33.0); MEAN CORPUSCULAR HGB CONC 35.5 g/dl (32.0-36.5); MEAN CORPUSCULAR VOLUME 95.5 fl (80.0-96.0); MONO # 0.6 10^3/uL (0.0-0.8); MONO % 6.6 % (0.0-5.0); NEUTROPHILS # 5.3 10^3/uL (1.8-7.7); NEUTROPHILS % 59.4 % (36.0-66.0); PLATELET COUNT, AUTOMATED 214 10^3/uL (150-450); RED BLOOD COUNT 4.48 10^6/uL (4.00-5.40)
[2018-09-27] MEDS ORDERED: MORPHINE 2 MG/ML 1ML SYRINGE (J2270) IV ONE (13:45)
[2018-09-27] MEDS ORDERED: ONDANSETRON 4MG/2ML VIAL (J2405) IV ONE (13:45)
[2018-09-27] MEDS ORDERED: NS 1,000 ML IV ONE (13:45)
[2018-09-27 13:47] LABS: ALBUMIN 4.3 GM/DL (3.2-5.2); ALT/SGPT 16 U/L (12-78); AMYLASE 46 U/L (25-115); BILIRUBIN,DIRECT 0.1 MG/DL (0.0-0.2); BILIRUBIN,TOTAL 0.3 MG/DL (0.2-1.0); BLOOD UREA NITROGEN 18 MG/DL (7-18); CARBON DIOXIDE LEVEL 23 MEQ/L (21-32); CHLORIDE LEVEL 108 MEQ/L (98-107); CREATININE FOR GFR 0.73 MG/DL (0.55-1.30); GLOMERULAR FILTRATION RATE > 60.0 (>58); GLUCOSE, FASTING 97 MG/DL (70-100); LIPASE 133 U/L (73-393); POTASSIUM SERUM 3.4 MEQ/L (3.5-5.1); SODIUM LEVEL 141 MEQ/L (136-145); TOTAL PROTEIN 7.9 GM/DL (6.4-8.2)
[2018-09-27 14:41] VITALS: BP 131/63
[2018-09-27] MEDS ORDERED: ZOFR4TAB14 PO (15:02)
--- NOTE | 2018-09-27 15:30 | REP ---
GALLBLADDER ULTRASOUND: HISTORY: Right upper quadrant pain. COMPARISON: 11/14/2017 A 1.5 mm polyp is present in the gallbladder. There is no cholelithiasis. The gallbladder wall measures 2.2 mm. The common bile duct measures 3.5 mm. The liver and pancreas are normal in echogenicity. The right kidney measures 5.3 cm in transverse x 4.1 cm in AP x 10.1 cm in cephalocaudal dimensions. There is no hydronephrosis or mass. IMPRESSION: 1.5 mm gallbladder polyp. Electronically Signed by Marquis Evans MD 09/27/2018 04:01 P
--- NOTE | 2018-09-30 09:31 | ED PDOC ---
Post-Departure Follow-Up kenny samano faxed formal report of us for fu Kai Baron MD Sep 30, 2018 09:31
== END 2018-09-27 15:23 | disposition home or self-care (01) ==
LOC: M ED 12:45
DX: K82.4 Cholesterolosis of gallbladder (principal); R11.2 Nausea with vomiting, unspecified; R19.7 Diarrhea, unspecified; G43.909 Migraine, unspecified, not intractable, without status migrainosus; M79.7 Fibromyalgia; M51.9 Unspecified thoracic, thoracolumbar and lumbosacral intervertebral disc disorder; F41.9 Anxiety disorder, unspecified; F32.9 Major depressive disorder, single episode, unspecified; F43.10 Post-traumatic stress disorder, unspecified; K21.9 Gastro-esophageal reflux disease without esophagitis; F10.20 Alcohol dependence, uncomplicated; F17.200 Nicotine dependence, unspecified, uncomplicated; Z91.048 Other nonmedicinal substance allergy status; Z88.5 Allergy status to narcotic agent; Z88.8 Allergy status to other drugs, medicaments and biological substances; Z79.899 Other long term (current) drug therapy
CPT/HCPCS: 36415; 76705; 80048; 80076; 81001; 82150; 83690; 85025; 96374; 96375; 99284; G0480; J2270; J2405

== ENCOUNTER 2019-02-12 09:11 | Day surgery (SDC) | payer OTHER ==
[~2019-02-12] VITALS: Ht 160 cm; Wt 56.2 kg
[~2019-02-12 09:11] MED LIST changes: -/DULO30CA; +ACET-716 PO; -ACET30TAB PO; -ASCO25TA PO; +CYMB1CAP5; +GABA800T4 PO; +HYDR-3715 PO; -NORCOTAB PO; +NS 1,000 ML IV ONE; +VITA1TAB23 PO; +ZOFR4TAB14 PO
[2019-02-12] MEDS ORDERED: LIDOCAINE 2% INJ 100 MG/5 ML SDV (FOR ANES.) As Ordered ONE (11:02)
[2019-02-12] MEDS ORDERED: PROPOFOL 200 MG/20 ML VIAL As Ordered ONE ×2 (11:02→11:59)
[2019-02-12] MEDS ORDERED: fentaNYL 100 MCG/2 ML INJECTION (J3010) As Ordered ONE (11:19)
[2019-02-12] MEDS ORDERED: ePHEDrine SULFATE 25 MG/5 ML(5MG/ML) SYRINGE As Ordered ONE (11:31)
--- NOTE | 2019-02-12 12:21 | ROOR ---
Patient Name: Millie Burks Procedure Date: 02/12/2019 11:16 AM Date of : 1975 Age: 43 Room: [facility] Gender: Female Note Status: Finalized Procedure: Upper GI endoscopy Indications: Dyspepsia, Weight loss Providers: Edgar Juárez MD Referring MD: Dolly VINES NP Requesting Provider: Medicines: Monitored Anesthesia Care Complications: No immediate complications. Procedure: Pre-Anesthesia Assessment: - Prior to the procedure, a History and Physical was performed, and patient medications and allergies were reviewed. The patient is competent. The risks and benefits of the procedure and the sedation options and risks were discussed with the patient. All questions were answered and informed consent was obtained. Patient identification and proposed procedure were verified by the physician, the nurse and the anesthesiologist in the procedure room. Mental Status Examination: alert and oriented. Airway Examination: normal oropharyngeal airway and neck mobility. Respiratory Examination: clear to auscultation. CV Examination: normal. Prophylactic Antibiotics: The patient does not require prophylactic antibiotics. Prior Anticoagulants: The patient has taken no previous anticoagulant or antiplatelet agents. ASA Grade Assessment: II - A patient with mild systemic disease. After reviewing the risks and benefits, the patient was deemed in satisfactory condition to undergo the procedure. The anesthesia plan was to use monitored anesthesia care (MAC). Immediately prior to administration of medications, the patient was re-assessed for adequacy to receive sedatives. The heart rate, respiratory rate, oxygen saturations, blood pressure, adequacy of pulmonary ventilation, and response to care were monitored throughout the procedure. The physical status of the patient was re-assessed after the procedure. The Endoscope was introduced through the mouth, and advanced to the second part of duodenum. The upper GI endoscopy was accomplished without difficulty. The patient tolerated the procedure well. Findings: LA Grade A (one or more mucosal breaks less than 5 mm, not extending between tops of 2 mucosal folds) esophagitis with no bleeding was found in the distal esophagus. Biopsies were taken with a cold forceps for histology. Verification of patient identification for the specimen was done by the physician and nurse using the patient's name, date and medical record number. Estimated blood loss was minimal. Diffuse mild inflammation characterized by erythema and granularity was found in the gastric body and in the gastric antrum. Biopsies were taken with a cold forceps for Helicobacter pylori testing. The duodenal bulb and second portion of the duodenum were normal. Biopsies for histology were taken with a cold forceps for evaluation of celiac disease. Impression: - LA Grade A reflux esophagitis. Biopsied. - Gastritis. Biopsied. - Normal duodenal bulb and second portion of the duodenum. Biopsied. Recommendation: - Patient has a contact number available for emergencies. The signs and symptoms of potential delayed complications were discussed with the patient. Return to normal activities tomorrow. Written discharge instructions were provided to the patient. - Resume previous diet. - Continue present medications. - Await pathology results. - Based on the biopsy results you will receive a phone call from GI clinic in 2-3 weeks to review the pathology results AND/OR your results will be faxed to your Primary care physician. - Return to primary care physician. Edgar Juárez MD Edgar Juárez MD 02/12/2019 12:20:43 PM Electronically signed by Edgar Juárez MD Number of Addenda: 0 Note Initiated On: 02/12/2019 11:16 AM Estimated Blood Loss: Estimated blood loss was minimal.
--- NOTE | 2019-02-12 12:26 | ROOR ---
Patient Name: Millie Burks Procedure Date: 02/12/2019 11:17 AM Date of : 1975 Age: 43 Room: [facility] Gender: Female Note Status: Finalized Procedure: Colonoscopy Indications: Chronic diarrhea, Weight loss Providers: Edgar Juárez MD Referring MD: Dolly VINES NP Requesting Provider: Medicines: Monitored Anesthesia Care Complications: No immediate complications. Procedure: Pre-Anesthesia Assessment: - Prior to the procedure, a History and Physical was performed, and patient medications and allergies were reviewed. The patient is competent. The risks and benefits of the procedure and the sedation options and risks were discussed with the patient. All questions were answered and informed consent was obtained. Patient identification and proposed procedure were verified by the physician, the nurse and the anesthesiologist in the procedure room. Mental Status Examination: alert and oriented. Airway Examination: normal oropharyngeal airway and neck mobility. Respiratory Examination: clear to auscultation. CV Examination: normal. Prophylactic Antibiotics: The patient does not require prophylactic antibiotics. Prior Anticoagulants: The patient has taken no previous anticoagulant or antiplatelet agents. ASA Grade Assessment: II - A patient with mild systemic disease. After reviewing the risks and benefits, the patient was deemed in satisfactory condition to undergo the procedure. The anesthesia plan was to use monitored anesthesia care (MAC). Immediately prior to administration of medications, the patient was re-assessed for adequacy to receive sedatives. The heart rate, respiratory rate, oxygen saturations, blood pressure, adequacy of pulmonary ventilation, and response to care were monitored throughout the procedure. The physical status of the patient was re-assessed after the procedure. The Colonoscope was introduced through the anus and advanced to the terminal ileum, with identification of the appendiceal orifice and IC valve. The colonoscopy was performed without difficulty. The patient tolerated the procedure well. The quality of the bowel preparation was good. The terminal ileum, ileocecal valve, appendiceal orifice, and rectum were photographed. Scope insertion time was 3 minutes. Scope withdrawal time was 9 minutes. The total duration of the procedure was 12 minutes. Findings: The perianal and digital rectal examinations were normal. The terminal ileum appeared normal. Normal mucosa was found in the entire colon. Biopsies for histology were taken with a cold forceps from the right colon, left colon and rectosigmoid colon for evaluation of microscopic colitis. Verification of patient identification for the specimen was done by the physician and nurse using the patient's name, date and medical record number. Estimated blood loss was minimal. Non-bleeding external and internal hemorrhoids were found during retroflexion. The hemorrhoids were medium-sized. Impression: - The examined portion of the ileum was normal. - Normal mucosa in the entire examined colon. Biopsied. - Non-bleeding external and internal hemorrhoids. Recommendation: - Patient has a contact number available for emergencies. The signs and symptoms of potential delayed complications were discussed with the patient. Return to normal activities tomorrow. Written discharge instructions were provided to the patient. - High fiber diet. - Continue present medications. - Await pathology results. - Repeat colonoscopy in 5-10 years for screening purposes. - Based on the biopsy results you will receive a phone call from GI clinic in 2-3 weeks to review the pathology results AND/OR your results will be faxed to your Primary care physician. - Return to primary care physician. Edgar Juárez MD Edgar Juárez MD 02/12/2019 12:26:18 PM Electronically signed by Edgar Juárez MD Number of Addenda: 0 Note Initiated On: 02/12/2019 11:17 AM Estimated Blood Loss: Estimated blood loss was minimal.
[2019-02-12 12:30] VITALS: BP 97/60
== END 2019-02-12 12:42 | disposition home or self-care (01) ==
LOC: M OPP 09:11
PROVIDERS: ATTEND Internal Medicine Gastroenterology
DX: K64.8 Other hemorrhoids (principal); K63.5 Polyp of colon; K52.9 Noninfective gastroenteritis and colitis, unspecified; K21.0 Gastro-esophageal reflux disease with esophagitis; K29.70 Gastritis, unspecified, without bleeding; R10.13 Epigastric pain; R63.4 Abnormal weight loss; Z79.899 Other long term (current) drug therapy; Z88.8 Allergy status to other drugs, medicaments and biological substances; Z91.048 Other nonmedicinal substance allergy status; F17.210 Nicotine dependence, cigarettes, uncomplicated
CPT/HCPCS: 43249; 45380; 88305; J3010

== ENCOUNTER 2021-11-12 15:57 | Emergency (ER) | payer OTHER ==
[~2021-11-12] VITALS: Ht 160 cm; Wt 55.9 kg
[~2021-11-12 15:57] MED LIST changes: +ASCO250T20 PO; +CYCL-707 PO; -CYCL10TA PO; -CYMB60CA3 PO; +CYMB60CA4 PO; -DULO1CAP3 PO; +DULO1CAP6 PO; -HALO1TA PO; +HALO1TAB PO; -LATU40TA PO; +LATU40TA2 PO; +METH-1164 PO; -METH1TAB40 PO; +MIRT-62 PO; -NS 1,000 ML IV ONE; +OMEP1CAP73 PO; -OMEP20CA3 PO; -REME15TA PO; -TRAZ-160 PO; -TRAZ-163 PO; +TRAZ-252 PO; +TRAZ-257 PO; -VITA1TAB23 PO
[2021-11-12] MEDS ORDERED: OMEP40CA5 (16:07)
[2021-11-12] MEDS ORDERED: ESCITALOPRAM (16:07)
[2021-11-12 16:58] LABS: BASO % 0.4 % (0.0-1.0); EOS % 0.5 % (0.0-3.0); HEMATOCRIT 39.4 % (36.0-47.0); HEMOGLOBIN 13.7 g/dl (12.0-15.5); LYMPH # 2.7 10^3/uL (1.5-5.0); LYMPH % 34.3 % (24.0-44.0); MEAN CORPUSCULAR HEMOGLOBIN 34.4 pg (27.0-33.0); MEAN CORPUSCULAR HGB CONC 34.8 g/dl (32.0-36.5); MONO # 0.5 10^3/uL (0.0-0.8); MONO % 6.7 % (2.0-8.0); NEUTROPHILS # 4.6 10^3/uL (1.5-8.5); NEUTROPHILS % 57.8 % (36.0-66.0); PLATELET COUNT, AUTOMATED 254 10^3/uL (150-450); RED BLOOD COUNT 3.98 10^6/uL (4.00-5.40); WHITE BLOOD COUNT 7.9 10^3/uL (4.0-10.0)
[2021-11-12] MEDS ORDERED: NS 1,000 ML IV ONE (17:10)
[2021-11-12] MEDS ORDERED: KETOROLAC 30 MG/ML 1ML VIAL IV ONE ×2 (17:10→19:10)
[2021-11-12] MEDS ORDERED: ONDANSETRON 4MG/2ML VIAL IV ONE (17:10)
[2021-11-12 17:27] LABS: ALBUMIN 4.2 GM/DL (3.2-5.2); ALT/SGPT 13 U/L (12-78); BILIRUBIN,DIRECT 0.1 MG/DL (0.0-0.2); BILIRUBIN,TOTAL 0.3 MG/DL (0.2-1.0); BLOOD UREA NITROGEN 27 MG/DL (7-18); CALCIUM LEVEL 9.2 MG/DL (8.5-10.1); CARBON DIOXIDE LEVEL 25 MEQ/L (21-32); CHLORIDE LEVEL 109 MEQ/L (98-107); CREATININE FOR GFR 0.71 MG/DL (0.55-1.30); GLOMERULAR FILTRATION RATE > 60.0 (>58); GLUCOSE, FASTING 91 MG/DL (70-100); HCG, SERUM QUALITATIVE NEGATIVE (NEGATIVE); LIPASE 107 U/L (73-393); POTASSIUM SERUM 3.3 MEQ/L (3.5-5.1); SODIUM LEVEL 142 MEQ/L (136-145); TOTAL PROTEIN 7.1 GM/DL (6.4-8.2)
[2021-11-12] MEDS ORDERED: ISOVUE-370 76% 100ML VIAL As Ordered ONE (18:02)
[2021-11-12] MEDS ORDERED: POTASSIUM CHLORIDE 10MEQ SR TABLET PO ONE (18:40)
[2021-11-12] MEDS ORDERED: PANT-23 PO (20:04)
[2021-11-12 20:16] VITALS: BP 102/58
[2021-11-12 22:22] LABS: ERYTHROCYTE SEDIMENTATION RATE 9 mm/hr (0-20)
== END 2021-11-12 20:19 | disposition home or self-care (01) ==
LOC: M ED 15:57
DX: R10.32 Left lower quadrant pain (principal); R19.7 Diarrhea, unspecified; R63.4 Abnormal weight loss; K27.9 Peptic ulcer, site unspecified, unspecified as acute or chronic, without hemorrhage or perforation; M79.7 Fibromyalgia; F17.200 Nicotine dependence, unspecified, uncomplicated; F12.10 Cannabis abuse, uncomplicated; F43.10 Post-traumatic stress disorder, unspecified; F31.9 Bipolar disorder, unspecified; F10.10 Alcohol abuse, uncomplicated; Z91.048 Other nonmedicinal substance allergy status; Z88.6 Allergy status to analgesic agent; Z79.899 Other long term (current) drug therapy
CPT/HCPCS: 74177; 80048; 80076; 83690; 84703; 85025; 85652; 86140; 87804; 96361; 96374; 96375; 99284; J1885; J2405; Q9967